=== PATIENT | female | born 2000 | race Hispanic/Latino ===

== ENCOUNTER 2022-05-26 10:51 | Outpatient (CLI) | payer MEDICAID, OTHER | END 2022-05-26 10:52 | disposition home or self-care (01) | LOC: CSHLAB 10:51 | PROVIDERS: ATTEND Family Medicine | DX: Z01.812 Encounter for preprocedural laboratory examination (principal); Z20.822 Contact with and (suspected) exposure to COVID-19 | CPT/HCPCS: 85014; 85018; 85049; 86780; 86850; 86900; 86901; 87340; U0002 ==

== ENCOUNTER 2022-05-29 09:28 | Inpatient (IN) | payer MEDICAID, OTHER, SELFPAY ==
[2022-05-29] MEDS ORDERED: hydrALAZINE 20 MG/ML VIAL SLOW IVP PRN ×2 (10:24→16:20)
[2022-05-29] MEDS ORDERED: Famotidine/PF 20 mg/2ml Vial SLOW IVP PRN (10:24)
[2022-05-29] MEDS ORDERED: Bicitra 30 ML UDCUP PO PRN (10:24)
[2022-05-29] MEDS ORDERED: Promethazine HCl 25 MG/ML VIAL IM PRN ×3 (10:24→16:20)
[2022-05-29] MEDS ORDERED: Ondansetron PF 4 MG/2 ML Vial IVP PRN ×3 (10:24→16:20)
[2022-05-29] MEDS ORDERED: Tranexamic Acid 1,000 MG in Sodium Chloride 0.9% 250 ML 250 ML IVPB PRN (10:24)
[2022-05-29] MEDS ORDERED: CEFAZOLIN 2 GM in Sodium Chloride 0.9% 100 ML IVPB SCH (10:24)
[2022-05-29] MEDS ORDERED: Misoprostol 200 MCG TAB PR PRN (10:24)
[2022-05-29] MEDS ORDERED: Lactated Ringer's 1,000 ML IV SCH (10:24)
[2022-05-29] MEDS ORDERED: Diphenoxylate HCl/Atropine Tablet PO PRN (10:24)
[2022-05-29] MEDS ORDERED: Methylergonovine 0.2 MG/ML VIAL IM PRN (10:24)
[2022-05-29] MEDS ORDERED: NS w/ Oxytocin 30 units 500 ML IV SCH (10:24)
[2022-05-29] MEDS ORDERED: Carboprost 250 MCG/ML AMP IM PRN (10:24)
[2022-05-29 11:10] VITALS: BMI 28.5
[2022-05-29] MEDS ORDERED: Fentanyl 100 MCG/2 ML VIAL SLOW IVP PRN (11:25)
[2022-05-29] MEDS ORDERED: HYDROmorphone 2 MG/ML VIAL SLOW IVP PRN (11:25)
[2022-05-29] MEDS ORDERED: Promethazine HCl 25 MG SUPP PR PRN (11:25)
[2022-05-29] MEDS ORDERED: Meperidine HCl/PF 25 MG/ML VIAL SLOW IVP PRN (11:25)
[2022-05-29] MEDS ORDERED: Naloxone HCl 0.4 mg/ml Vial IVP PRN ×2 (11:25)
[2022-05-29] MEDS ORDERED: Ketorolac Tromethamine 30 MG/ML VIAL IVP PRN (11:25)
[2022-05-29] MEDS ORDERED: Moisturizing Cream (Eucerin) 113 GM JAR TOP PRN (11:25)
[2022-05-29] MEDS ORDERED: Ondansetron HCl/PF 4 MG/2 ML Vial IVP PRN (11:25)
[2022-05-29] MEDS ORDERED: Naloxone HCl 0.4 mg/ml Vial IV PRN (11:25)
[2022-05-29] MEDS ORDERED: diphenhydrAMINE 50 MG/ML VIAL IVP PRN (11:25)
[2022-05-29] MEDS ORDERED: Morphine PF 10 MG/10 ML VIAL ONE (11:29)
[2022-05-29] MEDS ORDERED: Fentanyl 100 MCG/2 ML VIAL ONE (11:29)
[2022-05-29] MEDS ORDERED: Communication Order-Pharmacy FS SCH (11:30)
[2022-05-29] MEDS ORDERED: Ketorolac Tromethamine 30 MG/ML VIAL IVP SCH ×2 (11:30→16:40)
[2022-05-29] MEDS ORDERED: Ondansetron PF 4 MG/2 ML Vial ONE (11:31)
[2022-05-29] MEDS ORDERED: Phenylephrine 10 MG/ML VIAL ONE (11:31)
[2022-05-29] MEDS ORDERED: Oxytocin 10 UNITS/ML VIAL ONE (11:31)
[2022-05-29] MEDS ORDERED: Dexamethasone 4 mg/ml Vial ONE (11:31)
[2022-05-29] MEDS ORDERED: Bisacodyl 10 MG SUPP PR PRN (16:20)
[2022-05-29] MEDS ORDERED: Simethicone Chewable 80 MG TAB PO PRN (16:20)
[2022-05-29] MEDS ORDERED: HYDROcodone/Acetaminophen 5/325 mg Tablet PO PRN (16:20)
[2022-05-29] MEDS ORDERED: diphenhydrAMINE 25 MG CAP PO PRN (16:20)
[2022-05-29] MEDS ORDERED: Boostrix 0.5 ML (Tdap) VIAL (>/=7 yrs of age) IM ONE (16:20)
[2022-05-29] MEDS ORDERED: Lanolin Ointment 7 GM TUBE TOP PRN (16:20)
[2022-05-29] MEDS ORDERED: Meperidine HCl/PF 25 MG/ML VIAL IM PRN (16:20)
[2022-05-29] MEDS ORDERED: Meperidine HCl/PF 25 MG/ML VIAL ONE (16:49)
[2022-05-29] MEDS: Ferrous Sulfate 325 MG TAB PO SCH (19:57)
[2022-05-29] MEDS: Docusate 100 MG CAP PO SCH (19:57)
[2022-05-29] MEDS: Ketorolac Tromethamine 30 MG/ML VIAL IVP SCH (21:53)
[2022-05-30 04:10] LABS: Hemoglobin 9.5 g/dL (12.0-15.5); Mean Corpuscular HGB CONC 31.9 g/dL (32.0-36.0); Mean Corpuscular Hemoglobin 25.8 pg (27.0-33.0); Mean Platelet Volume 11.1 fl (7.4-10.4); Platelet Count 196 10x3/uL (150-450); RBC Distribution Width 15.4 % (11.5-14.5); Red Blood Cell (RBC) Count 3.68 10x6/uL (3.90-5.03)
[2022-05-30] MEDS: Ketorolac Tromethamine 30 MG/ML VIAL IVP SCH ×2 (05:01→12:06)
[2022-05-30] MEDS: Docusate 100 MG CAP PO SCH ×2 (08:13→21:11)
[2022-05-30] MEDS: Ferrous Sulfate 325 MG TAB PO SCH ×2 (08:13→21:11)
[2022-05-30] MEDS: Prenatal Vitamin 1 TAB PO SCH (08:13)
[2022-05-30] MEDS: HYDROcodone/Acetaminophen 5/325 mg Tablet PO PRN ×3 (12:03→21:12)
[2022-05-30] MEDS: Ibuprofen 800 MG TAB PO SCH (21:11)
[2022-05-31] MEDS: HYDROcodone/Acetaminophen 5/325 mg Tablet PO PRN ×3 (03:57→15:52)
[2022-05-31] MEDS: Ibuprofen 800 MG TAB PO SCH ×3 (05:34→21:56)
[2022-05-31] MEDS: Prenatal Vitamin 1 TAB PO SCH (08:55)
[2022-05-31] MEDS: Docusate 100 MG CAP PO SCH ×2 (08:55→21:56)
[2022-05-31] MEDS: Ferrous Sulfate 325 MG TAB PO SCH ×2 (20:34→21:56)
[2022-05-31 20:41] VITALS: TEMP 97.7
[2022-06-01] MEDS: Ibuprofen 800 MG TAB PO SCH ×2 (05:30→15:47)
[2022-06-01 08:45] VITALS: BP 110/70
[2022-06-01] MEDS: Docusate 100 MG CAP PO SCH (10:03)
[2022-06-01] MEDS: Ferrous Sulfate 325 MG TAB PO SCH (10:03)
[2022-06-01] MEDS: Prenatal Vitamin 1 TAB PO SCH (10:04)
[2022-06-01] MEDS: HYDROcodone/Acetaminophen 5/325 mg Tablet PO PRN (10:04)
== END 2022-06-01 16:57 | disposition home or self-care (01) | DRG 788 ==
LOC: CSHLD 09:28 → CSHPP 17:04
PROVIDERS: ADMIT Family Medicine; ATTEND Family Medicine
PROC: 10D00Z1 Extraction of Products of Conception, Low, Open Approach (ICD-10-PCS; principal; 2022-05-29)
PROC: 3E0P05Z Introduction of Adhesion Barrier into Female Reproductive, Open Approach (ICD-10-PCS; 2022-05-29)
DX: O34.211 Maternal care for low transverse scar from previous cesarean delivery (principal); Z3A.39 39 weeks gestation of pregnancy; Z37.0 Single live birth; Z79.899 Other long term (current) drug therapy; O76 Abnormality in fetal heart rate and rhythm complicating labor and delivery
CPT/HCPCS: 36415; 51702; 85027; J1100; J1885; J2175; J2274; J2370; J2405; J2550; J2590; J3010; J3490; J7120; S0028